=== PATIENT | male | born 1995 | race Caucasian/White ===

== ENCOUNTER 2020-07-12 12:12 | Emergency (ER) | payer MEDICAID, SELFPAY ==
[2020-07-12 12:25] VITALS: BP 141/78; PULSE 107; RESP 15; TEMP 37.2; O2SAT 97; BMI 22.1
--- NOTE | 2020-07-12 12:36 | HMH.EDUTC ---
[facility] [place] Disposition Clinical Impression: Exposure to COVID-19 virus Disposition: Home, Self-Care Condition on Discharge: Good Instructions: Preventing the Spread of Coronavirus Discharge Instructions Additional Instructions: You have been tested for COVID19. Please isolate yourself as if you are positive until those test results are received. Referrals: PCP,No [Primary Care Provider] - Time of Disposition: 12:42 Medical Decision Making - Stuart Inquiry Pt receiving controlled substance: No Orders (Tests/Meds): ORDERS Category Date Time Status Covid-19 Nasal PCR Sendout P&C Routine Lab 07/12/20 12:18 Ordered [facility] [place] HPI - General Stated complaint: Covid test Time Seen by Provider: 07/12/20 12:36 - History of Present Illness Provider Complaint: Patient states someone who later tested positive for COVID19 was at their house 2 days before that getting a cat. He is asymptomatic but very worried. Onset (ago): day(s) (2) Relieving factors: none Exacerbating factors: none Associated symptoms: denies other symptoms Treatments prior to arrival: none [facility] History - Hepatitis A Screen Attestation statement:: This patient has been screened for Hepatitis A risk factors. I have reviewed the patient's past medical history: Yes ROS Obtained: Yes All systems reviewed & no additional complaints Physical Exam - General General appearance: alert, in no apparent distress - Head Head exam: normocephalic - Eye Eye exam: Present: PERRL - ENT ENT exam: Present: normal oropharynx - Chest Chest inspection: Present: normal inspection, symmetric chest wall rise - Respiratory Respiratory exam: Present: normal lung sounds bilaterally - Cardiovascular Cardiovascular exam: Present: regular rate, normal rhythm - Neurological Exam Neurological exam: Present: alert, oriented X3 - Psychiatric Psychiatric exam: Present: normal affect, normal mood - Skin Skin exam: Present: warm, dry
[2020-07-12 13:03] VITALS: BP 141/78; PULSE 107; RESP 15; TEMP 37.2; O2SAT 97
[2020-07-13 10:56] LABS: Covid-19 Nasal PCR Sendout P&C NEGATIVE
== END 2020-07-12 13:05 | disposition home or self-care (01) ==
PROVIDERS: Emergency Provider Physician Assistant
DX: Z20.828 Contact with and (suspected) exposure to other viral communicable diseases (principal)
CPT/HCPCS: 99201; U0004